=== PATIENT | female | born 1945 | race Caucasian/White ===

== ENCOUNTER → 2020-05-09 | Outpatient (CLI) | payer MEDICARE, BC ==
--- NOTE | 2020-05-09 11:12 | RAD ---
CT LOW DOSE LUNG SCREENING INDICATION: NICOTINE DEPENDENCE, NICOTINE INDUCED DISORDER, SMOKER X 50 YRS. 1 1/2 PACKS/ DAY . Baseline lung screening. Asymptomatic patient. COMPARISON STUDY: None. TECHNIQUE: Unenhanced axial images were obtained through the lungs and upper abdomen using low dose technique. Coronal and sagittal multiplanar reformatted images were also obtained. PQRS compliance statement: One or more of the following individualized dose reduction techniques were utilized for this examination: 1. Automated exposure control 2. Adjustment of the mA and/or kV according to patient size 3. Use of iterative reconstruction technique FINDINGS: Lung Nodules: Few small indeterminate pulmonary nodules with solar sales representative and assessor nodule as follows: Left upper lobe 3 mm solid pulmonary nodule (series 2 image 84). Lungs and Airways: No pulmonary mass or consolidation. Paraseptal and centrilobular emphysema. Bronchial wall thickening. Endobronchial mucous plugging. Pleura: Normal pleural spaces. Heart and Mediastinum: The visualized portions of the thyroid gland are normal in size and attenuation. No axillary or supraclavicular lymphadenopathy. No mediastinal, hilar or retrocrural lymphadenopathy. Normal cardiac size. Coronary artery atherosclerotic disease. Mitral annular calcification. The great vessels of the thorax are normal. Abdomen: The visualized abdominal organs demonstrate no abnormality. Bones and Soft Tissues: The visualized skeletal structures and soft tissues of the chest wall are within normal limits. IMPRESSION: Few tiny indeterminate pulmonary nodules measuring up to 3 mm. Lung-RADS Category: 2 Management Recommendation: Follow up low-dose chest CT in one year. Electronically signed by: Tommie Johnson MD (05/09/2020 11:09 AM) [facility]
== END | disposition home or self-care (01) ==
LOC: CT 09:27
PROVIDERS: ATTEND Specialist
DX: Z12.2 Encounter for screening for malignant neoplasm of respiratory organs (principal); J43.2 Centrilobular emphysema; I05.9 Rheumatic mitral valve disease, unspecified; I25.10 Atherosclerotic heart disease of native coronary artery without angina pectoris; F17.208 Nicotine dependence, unspecified, with other nicotine-induced disorders; F17.210 Nicotine dependence, cigarettes, uncomplicated
CPT/HCPCS: G0297

== ENCOUNTER 2020-11-27 16:00 | Emergency (ER) | payer MEDICARE, BC ==
[~2020-11-27] VITALS: Ht 154.9 cm; Wt 52.0 kg
[2020-11-27 18:11] LABS: BASO # 0.1 x10^3/uL (0.0-0.2); BASO % 1 % (0-3); EOS # 0.2 x10^3/uL (0.0-0.7); EOS % 2 % (0-3); HEMATOCRIT 39.9 % (36.0-47.0); HEMOGLOBIN 13.3 g/dL (12.0-15.5); LYMPH # 2.5 x10^3/uL (1.0-4.8); LYMPH % 20 % (24-48); MEAN CORPUSCULAR HEMOGLOBIN 32 pg (25-35); MEAN CORPUSCULAR HGB CONC 33 g/dL (31-37); MEAN CORPUSCULAR VOLUME 97 fL (79-100); MONO # 0.9 x10^3/uL (0.0-1.1); MONO % 7 % (0-9); NEUT # 8.7 x10^3uL (1.8-7.7); NEUT % 70 % (31-73); PLATELET COUNT 223 x10^3/uL (140-400); RED BLOOD COUNT 4.13 x10^6/uL (3.50-5.40); RED CELL DISTRIBUTION WIDTH 14.5 % (11.5-14.5); WHITE BLOOD COUNT 12.5 x10^3/uL (4.0-11.0)
--- NOTE | 2020-11-27 18:15 | RAD ---
INDICATION: Reason: sob / Spl. Instructions: / History: COMPARISON: May 09, 2020 FINDINGS: Single view of chest obtained. Calcified granuloma left lung. Mild blunting of the costophrenic angles. Mild prominence of the inter stitial markings without a new region of consolidation. Cardiac silhouette unremarkable. IMPRESSION: * Mild blunting of the costophrenic angles which could be secondary to trace pleural effusion or ple ural thickening. No definite new region of focal consolidation. Electronically signed by: Rehan Lombardi MD (11/27/2020 6:13 PM) [id number]
--- NOTE | 2020-11-27 18:15 | PHYS DOC ---
Past History Past Medical History: COPD, Diabetes, High Cholesterol (RENEE TORIBIO MD) Past Medical History: COPD (SANTANA ARGUELLO DO) Past Surgical History: Appendectomy, Tonsillectomy, Other Additional Past Surgical Histo: EGD (RENEE TORIBIO MD) Alcohol Use: None (RENEE TORIBIO MD) Adult General Chief Complaint Chief Complaint: COUGH HPI HPI Patient is a 75F with a past medical history includes COPD now presenting emergency department complaining of new onset of shortness of breath. Patient states that last week she developed worsening sensation of shortness of breath primarily with exertion and also associated with mild nasal congestion and runny nose. Patient states this is worsened since last 24 hours. Patient states that she uses her nebulizer and inhaler intermittently as needed but has not needed to increase this. Denies any fevers or anosmia. Denies any nausea, vomiting, dizziness, lightheadedness, back pain. Patient was Covid positive in September (RENEE TORIBIO MD) Review of Systems Review of Systems Constitutional: Denies fever or chills [] Eyes: Denies change in visual acuity, redness, or eye pain [] HENT: Denies nasal congestion or sore throat [] Respiratory: Denies cough or shortness of breath [] Cardiovascular: No additional information not addressed in HPI [] GI: Denies abdominal pain, nausea, vomiting, bloody stools or diarrhea [] : Denies dysuria or hematuria [] Musculoskeletal: Denies back pain or joint pain [] Integument: Denies rash or skin lesions [] Neurologic: Denies headache, focal weakness or sensory changes [] Endocrine: Denies polyuria or polydipsia [] All other systems were reviewed and found to be within normal limits, except as documented in this note. (RENEE TORIBIO MD) Allergies Allergies Allergies Coded Allergies Type Severity Reaction Last Updated Verified doxycycline Allergy Unknown 11/27/20 Yes empagliflozin Allergy Unknown 11/27/20 Yes metformin Allergy Unknown 11/27/20 Yes (RENEE TORIBIO MD) Physical Exam Physical Exam Constitutional: Well developed, well nourished, no acute distress, non-toxic appearance. [] HENT: Normocephalic, atraumatic, bilateral external ears normal, oropharynx moist, no oral exudates, nose normal. [] Eyes: PERRLA, EOMI, conjunctiva normal, no discharge. [] Neck: Normal range of motion, no tenderness, supple, no stridor. [] Cardiovascular:Heart rate regular rhythm, no murmur [] Lungs & Thorax: Bilateral breath sounds clear to auscultation [] Abdomen: Bowel sounds normal, soft, no tenderness, no masses, no pulsatile masses. [] Skin: Warm, dry, no erythema, no rash. [] Back: No tenderness, no CVA tenderness. [] Extremities: No tenderness, no cyanosis, no clubbing, ROM intact, no edema. [] Neurologic: Alert and oriented X 3, normal motor function, normal sensory function, no focal deficits noted. [] Psychologic: Affect normal, judgement normal, mood normal. [] (RENEE TORIBIO MD) Current Patient Data Vital Signs Vital Signs Date Time Temp Pulse Resp B/P (MAP) Pulse Ox O2 Delivery O2 Flow Rate FiO2 11/27/20 16:36 98.3 82 20 150/70 (96) 93 Room Air (RENEE TORIBIO MD) EKG EKG [] (RENEE TORIBIO MD) Radiology/Procedures Radiology/Procedures [] (RENEE TORIBIO MD) Radiology/Procedures PROCEDURE: PORTABLE CHEST 1V INDICATION: Reason: sob / Spl. Instructions: / History: COMPARISON: May 09, 2020 FINDINGS: Single view of chest obtained. Calcified granuloma left lung. Mild blunting of the costophrenic angles. Mild prominence of the interstitial markings without a new region of consolidation. Cardiac silhouette unremarkable. IMPRESSION: * Mild blunting of the costophrenic angles which could be secondary to trace pleural effusion or pleural thickening. No definite new region of focal consolidation. Electronically signed by: Rehan Lombardi MD (11/27/2020 6:13 PM) [id number] (SANTANA ARGUELLO DO) Heart Score C/O Chest Pain: No Risk Factors: Risk Factors: DM, Current or recent (<one month) smoker, HTN, HLP, family history of CAD, obesity. Risk Scores: Risk Factors: DM, Current or recent (<one month) smoker, HTN, HLP, family history of CAD, obesity. (RENEE TORIBIO MD) Course & Med Decision Making Course & Med Decision Making Pertinent Labs and Imaging studies reviewed. (See chart for details) 75F presenting with new onset of symptoms most consistent with acute viral syndrome. Based on the patient's complaint there is concern for influenza or COVID-19. Will obtain full work-up with a chest x-ray to make sure there is no other significant underlying etiology (RENEE TORIBIO MD) Course & Med Decision Making I assumed care of patient after comprehensive signout from off going physician. I reviewed ER work-up thus far and personally evaluated patient repeating aspe cts of history and physical exam. I am concerned for potential viral syndrome such as COVID-19 versus acute exacerbation COPD Patient tested for COVID-19 this ER visit and is now a PUI. She was educated on importance of quarantine until results and continued supportive care practices Also discussed low likelihood of pneumonia given symptoms. Patient's history consistent with acute exacerbation given increased shortness of breath, increased sputum production and change in sputum purulence. Hemodynamically stable. Oxygen saturations in low 90s which is likely where she lives chronically. She uses Advair daily with increased use of albuterol nebulizer, is requesting inhaler today. Patient received azithromycin, prednisone, and prescription for new inhaler this ER visit. Patient quarantine until Covid results return with continued supportive care advised Advised patient to close loop with your primary care physician who saw her today and discuss next steps in care and when it is safe to be seen and evaluated again Nonetheless, strict return precautions were discussed with good understanding by patient and daughter who is present at bedside, all questions and concerns addressed prior to ER departure in stable condition (SANTANA ARGUELLO DO) Dragon Disclaimer Dragon Disclaimer This electronic medical record was generated, in whole or in part, using a voice recognition dictation system. (RENEE TORIBIO MD) Departure Departure: Impression: Primary Impression: Chronic obstructive pulmonary disease with (acute) exacerbation Additional Impression: Person under investigation for COVID-19 Disposition: 01 DC HOME SELF CARE/HOMELESS Condition: STABLE Referrals: ALEXANDR SARAH MD (PCP) Scripts Albuterol Sulfate (Proair Respiclick) 90 Mcg Aer.pow.[email or web address] 2 PUFF IH PRN Q4-6HRS PRN for shortness of breath, #1 INHALER 0 Refills Prov: SANTANA ARGUELLO DO 11/27/20 Azithromycin (ZITHROMAX) 500 Mg Tablet 1 TAB PO DAILY for copd exacerbation, #2 TAB Prov: SANTANA ARGUELLO DO 11/27/20 Prednisone (PREDNISONE) 20 Mg Tablet 40 MG PO DAILY for bronchitis for 4 Days, #8 TAB Prov: SANTANA ARGUELLO DO 11/27/20 Problem Qualifiers RENEE TORIBIO MD Nov 27, 2020 18:15 SANTANA ARGUELLO DO Nov 28, 2020 05:23
[2020-11-27 18:17] LABS: CALCIUM 9.6 mg/dL (8.5-10.1); CREATININE 0.7 mg/dL (0.6-1.0); POTASSIUM 4.3 mmol/L (3.5-5.1)
[2020-11-27 18:30] LABS: ALBUMIN 3.5 g/dL (3.4-5.0); ALBUMIN/GLOBULIN RATIO 1.1 (1.0-1.7); TOTAL BILIRUBIN 0.4 mg/dL (0.2-1.0); TOTAL PROTEIN 6.8 g/dL (6.4-8.2)
[2020-11-27] MEDS ORDERED: AZITHROMYCIN 250 MG TABLET. PO ONE (19:30)
[2020-11-27] MEDS ORDERED: predniSONE 10 MG TABLET PO ONE (19:30)
[2020-11-27] MEDS ORDERED: AZIT500T PO (19:35)
[2020-11-27] MEDS ORDERED: PRED20TA PO (19:35)
[2020-11-27] MEDS ORDERED: PROAIR RESPICL90 MCG IH (19:38)
[2020-11-27 19:55] VITALS: BP 147/83
--- NOTE | 2020-11-29 07:55 | EKG ---
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
== END 2020-11-27 19:55 | disposition home or self-care (01) ==
LOC: ER 16:00
DX: J44.1 Chronic obstructive pulmonary disease with (acute) exacerbation (principal); Z20.822 Contact with and (suspected) exposure to COVID-19; E11.9 Type 2 diabetes mellitus without complications; E78.00 Pure hypercholesterolemia, unspecified; Z90.89 Acquired absence of other organs; Z88.1 Allergy status to other antibiotic agents; Z88.8 Allergy status to other drugs, medicaments and biological substances
CPT/HCPCS: 36415; 71045; 80053; 82550; 83880; 84484; 85025; 93005; 99285; C9803; J7512; U0003

== ENCOUNTER → 2021-04-16 | Outpatient (CLI) | payer MEDICARE, BC ==
[~2021-04-16] MED LIST: AZIT500T PO; PRED20TA PO; PROAIR RESPICL90 MCG IH
--- NOTE | 2021-04-16 16:16 | RAD ---
EXAM: XR LUMBAR SPINE 4+V. HISTORY: Low back pain. COMPARISON: None. FINDINGS: There is a mild upper thoracic dextrocurvature. No fractures are identified. Degenerative d isc disease is mild at L1-2 and L3-4. 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 Atherosclerotic calcifications are noted. IMPRESSION: 1. Mild degenerative disc disease at L1-2 and L3-4. Electronically signed by: Solo Fitzgearld MD (04/16/2021 4:14 PM) [id number]
== END ==
LOC: RAD 15:19
PROVIDERS: ATTEND Specialist
DX: M51.36 Other intervertebral disc degeneration, lumbar region (principal); M43.8X4 Other specified deforming dorsopathies, thoracic region; M47.817 Spondylosis without myelopathy or radiculopathy, lumbosacral region; I70.8 Atherosclerosis of other arteries; M54.5 Low back pain
CPT/HCPCS: 72110